=== PATIENT | female | born 1965 | race Caucasian/White ===

== ENCOUNTER 2018-09-29 12:38 | Emergency (ER) | payer MEDICAID, MEDICARE ==
[~2018-09-29] VITALS: Ht 167.6 cm; Wt 100.9 kg
[2018-09-29] MEDS ORDERED: KETOROLAC 60MG/2ML VIAL IM STA (21:09)
[2018-09-29 21:30] LABS: CLARITY URINE CLEAR (CLEAR); COLOR URINE YELLOW (YELLOW); KETONES URINE NEGATIVE (NEGATIVE); LEUKOCYTE ESTERASE URINE NEGATIVE (NEGATIVE); NITRITE URINE NEGATIVE (NEGATIVE); OCCULT BLOOD URINE 1+ (NEGATIVE); PH URINE 5.5 (4.5-8.0); PROTEIN URINE NEGATIVE (NEGATIVE); SPECIFIC GRAVITY URINE 1.018 (1.005-1.030); UROBILINOGEN URINE 0.2 E.U./dL (0.2-1.0)
[2018-09-29 21:57] LABS: BASOPHILS % 0.4 % (0.0-2.0); EOSINOPHILS % 0.3 % (0.0-5.0); HEMATOCRIT. 43.1 % (36.0-48.0); HEMOGLOBIN. 14.6 g/dL (12.0-16.0); LYMPHOCYTES % 16.1 % (20.0-50.0); MEAN CORPUSCULAR HEMOGLOBIN 29.9 pg (28.0-32.0); MEAN CORPUSCULAR VOLUME 88.3 fL (81.0-99.0); MEAN PLATELET VOLUME 9.6 fl (7.4-10.4); MONOCYTES % 7.5 % (2.0-8.0); NEUTROPHILS % 75.7 % (40.0-76.0); PLATELET 205 x1000/uL (130-400); RED BLOOD CELL COUNT 4.88 mill/uL (4.2-5.4)
[2018-09-29 21:58] LABS: CHLORIDE 100 mEq/L (98-107)
[2018-09-29 22:01] LABS: PROTHROMBIN TIME 10.5 sec (9.1-11.1)
[2018-09-29] MEDS ORDERED: POTASSIUM CHLORIDE 20MEQ TABLET SR PO ONE (22:15)
[2018-09-30 01:39] VITALS: BP 141/63
== END 2018-09-30 01:40 | disposition home or self-care (01) ==
LOC: ER 12:38
DX: K80.50 Calculus of bile duct without cholangitis or cholecystitis without obstruction (principal); F17.200 Nicotine dependence, unspecified, uncomplicated
CPT/HCPCS: 36415; 76705; 80053; 81003; 83690; 85025; 85610; 96372; 99284; J1885